=== PATIENT | male | born 1930 | race Caucasian/White ===

== ENCOUNTER 2017-04-15 09:09 | Outpatient (CLI) | payer MEDICARE ==
[2017-04-15 17:33] LABS: BASOPHILS # (AUTO) 0.1 10^3/uL (0.0-0.1); BASOPHILS % (AUTO) 1.4 %; EOSINOPHILS % (AUTO) 0.9 %; HGB - HEMOGLOBIN 8.7 g/dL (14.0-18.0); LYMPHOCYTES # (AUTO) 1.2 10^3/uL (1.5-3.5); LYMPHOCYTES % (AUTO) 28.8 %; MEAN CORPUSCULAR HEMOGLOBIN 25.4 pg (27.0-31.0); MEAN CORPUSCULAR HGB CONC 32.1 g/dL (32.0-36.0); MEAN CORPUSCULAR VOLUME 79.3 fL (80.0-94.0); MONOCYTES # (AUTO) 0.5 10^3/uL (0.0-1.0); MONOCYTES % (AUTO) 11.1 %; NEUTROPHILS # (AUTO) 2.5 10^3/uL (1.5-6.6); NEUTROPHILS % (AUTO) 57.8 %; RED BLOOD COUNT 3.41 10^6/uL (4.70-6.10); RED CELL DISTRIBUTION WIDTH 13.8 % (12.0-15.0); UNCORRECTED WHITE BLOOD COUNT 4.3 x10^3/uL; WHITE BLOOD COUNT 4.3 x10^3/uL (4.8-10.8)
[2017-04-15 20:28] LABS: ALBUMIN/GLOBULIN RATIO 1.5 (1.0-2.2); BILIRUBIN,TOTAL 0.5 mg/dL (0.2-1.0); BUN - BLOOD UREA NITROGEN 28 mg/dL (6-20); CALCIUM 9.3 mg/dL (8.5-10.3); CARBON DIOXIDE - CO2 26 mmol/L (21-32); CHLORIDE 106 mmol/L (101-111); CHOL/HDL RATIO 2.6 (<5.0); CHOLESTEROL 225 mg/dL; CREATININE 1.1 mg/dL (0.6-1.2); GFR - MDRD 64 (>89); GLUCOSE 96 mg/dL (70-100); HDL CHOLESTEROL 87 mg/dL; LDL/HDL RATIO 1.5 (<3.6); POTASSIUM 4.6 mmol/L (3.5-5.0); SODIUM 139 mmol/L (135-145); TOTAL PROTEIN 6.9 g/dL (6.7-8.2); TRIGLYCERIDES 46 mg/dL; VLDL CHOLESTEROL 9 mg/dL
== END 2017-04-15 09:10 | disposition home or self-care (01) ==
LOC: LAB.F 09:09
PROVIDERS: ATTEND Family Medicine
DX: R06.09 Other forms of dyspnea (principal)
CPT/HCPCS: 36415; 80053; 80061; 83880; 84443; 85025

== ENCOUNTER 2017-04-19 09:08 | Outpatient (CLI) | payer MEDICARE ==
[2017-04-19 11:06] LABS: IRON 11 ug/dL (45-182); TOTAL IRON BINDING CAPACITY 501 ug/dL (250-450); TRANSFERRIN 358 mg/dL (180-329)
== END 2017-04-19 09:09 | disposition home or self-care (01) ==
LOC: DI 09:08
PROVIDERS: ATTEND Family Medicine
DX: R01.1 Cardiac murmur, unspecified (principal); R06.00 Dyspnea, unspecified; I34.0 Nonrheumatic mitral (valve) insufficiency; D50.9 Iron deficiency anemia, unspecified
CPT/HCPCS: 36415; 82728; 83540; 84466; 93306

== ENCOUNTER 2017-04-20 08:00 | Outpatient (CLI) | payer MEDICARE | END 2017-04-20 23:59 | disposition home or self-care (01) | LOC: LAB.R 08:00 | PROVIDERS: ATTEND Physician Assistant Medical | DX: D50.9 Iron deficiency anemia, unspecified (principal) | CPT/HCPCS: 82270 ==

== ENCOUNTER 2017-05-09 11:40 | Outpatient (CLI) | payer MEDICARE ==
[2017-05-09 18:19] LABS: BASOPHILS # (AUTO) 0.1 10^3/uL (0.0-0.1); BASOPHILS % (AUTO) 1.3 %; EOSINOPHILS % (AUTO) 0.6 %; HCT - HEMATOCRIT 27.2 % (42.0-52.0); HGB - HEMOGLOBIN 8.4 g/dL (14.0-18.0); LYMPHOCYTES # (AUTO) 1.1 10^3/uL (1.5-3.5); LYMPHOCYTES % (AUTO) 25.8 %; MEAN CORPUSCULAR HEMOGLOBIN 25.1 pg (27.0-31.0); MEAN CORPUSCULAR VOLUME 80.9 fL (80.0-94.0); MEAN PLATELET VOLUME 7.9 fL (7.4-11.4); MONOCYTES # (AUTO) 0.5 10^3/uL (0.0-1.0); MONOCYTES % (AUTO) 12.1 %; NEUTROPHILS # (AUTO) 2.6 10^3/uL (1.5-6.6); NEUTROPHILS % (AUTO) 60.2 %; NUCLEATED RED BLOOD CELLS AUTO 0.2 /100WBC; RED BLOOD COUNT 3.37 10^6/uL (4.70-6.10); UNCORRECTED WHITE BLOOD COUNT 4.3 x10^3/uL; WHITE BLOOD COUNT 4.3 x10^3/uL (4.8-10.8)
[2017-05-09 19:35] LABS: CALCIUM 9.2 mg/dL (8.5-10.3); CREATININE 1.2 mg/dL (0.6-1.2); POTASSIUM 3.9 mmol/L (3.5-5.0)
[2017-05-09 20:20] LABS: PLATELET ESTIMATE, MANUAL NORMAL (130-450,000) (NORMAL); PLATELET MORPHOLOGY NORMAL APPEARANCE (NORMAL)
== END 2017-05-09 11:41 | disposition home or self-care (01) ==
LOC: LAB.F 11:40
PROVIDERS: ATTEND Family Medicine
DX: D50.9 Iron deficiency anemia, unspecified (principal); I10 Essential (primary) hypertension
CPT/HCPCS: 36415; 80048; 82728; 83540; 84466; 85025

== ENCOUNTER 2017-05-24 14:33 | Outpatient (CLI) | payer MEDICARE ==
[2017-05-24 17:52] LABS: BASOPHILS % (AUTO) 1.1 %; EOSINOPHILS % (AUTO) 0.3 %; HCT - HEMATOCRIT 29.4 % (42.0-52.0); HGB - HEMOGLOBIN 9.4 g/dL (14.0-18.0); LYMPHOCYTES # (AUTO) 0.9 10^3/uL (1.5-3.5); LYMPHOCYTES % (AUTO) 23.3 %; MEAN CORPUSCULAR VOLUME 81.3 fL (80.0-94.0); MEAN PLATELET VOLUME 8.1 fL (7.4-11.4); MONOCYTES # (AUTO) 0.4 10^3/uL (0.0-1.0); MONOCYTES % (AUTO) 9.4 %; NEUTROPHILS # (AUTO) 2.6 10^3/uL (1.5-6.6); NEUTROPHILS % (AUTO) 65.9 %; NUCLEATED RED BLOOD CELLS AUTO 0.1 /100WBC; RED BLOOD COUNT 3.62 10^6/uL (4.70-6.10); RED CELL DISTRIBUTION WIDTH 20.7 % (12.0-15.0)
[2017-05-24 18:11] LABS: CALCIUM 9.1 mg/dL (8.5-10.3); CREATININE 1.1 mg/dL (0.6-1.2); POTASSIUM 4.1 mmol/L (3.5-5.0)
[2017-05-24 19:38] LABS: PLATELET ESTIMATE, MANUAL NORMAL (130-450,000) (NORMAL); PLATELET MORPHOLOGY NORMAL APPEARANCE (NORMAL)
== END 2017-05-24 14:34 | disposition home or self-care (01) ==
LOC: LAB.F 14:33
PROVIDERS: ATTEND Family Medicine
DX: D50.9 Iron deficiency anemia, unspecified (principal); I10 Essential (primary) hypertension
CPT/HCPCS: 36415; 80048; 82728; 83540; 84466; 85025

== ENCOUNTER 2017-06-16 12:22 | Outpatient (CLI) | payer MEDICARE | END 2017-06-16 12:23 | disposition home or self-care (01) | LOC: RT 12:22 | PROVIDERS: ATTEND Internal Medicine Cardiovascular Disease | DX: R06.09 Other forms of dyspnea (principal) | CPT/HCPCS: 93005 ==

== ENCOUNTER 2017-07-07 11:20 | Outpatient (CLI) | payer MEDICARE ==
[2017-07-07 18:04] LABS: IRON 73 ug/dL (45-182); TOTAL IRON BINDING CAPACITY 392 ug/dL (250-450); TRANSFERRIN 280 mg/dL (180-329)
[2017-07-07 18:12] LABS: BASOPHILS # (AUTO) 0.1 10^3/uL (0.0-0.1); BASOPHILS % (AUTO) 1.4 %; EOSINOPHILS # (AUTO) 0.1 10^3/uL (0.0-0.7); EOSINOPHILS % (AUTO) 1.8 %; HCT - HEMATOCRIT 35.6 % (42.0-52.0); HGB - HEMOGLOBIN 11.5 g/dL (14.0-18.0); LYMPHOCYTES # (AUTO) 1.1 10^3/uL (1.5-3.5); LYMPHOCYTES % (AUTO) 24.6 %; MEAN CORPUSCULAR HGB CONC 32.4 g/dL (32.0-36.0); MEAN CORPUSCULAR VOLUME 86.2 fL (80.0-94.0); MEAN PLATELET VOLUME 8.4 fL (7.4-11.4); MONOCYTES # (AUTO) 0.5 10^3/uL (0.0-1.0); MONOCYTES % (AUTO) 10.9 %; NEUTROPHILS # (AUTO) 2.7 10^3/uL (1.5-6.6); NEUTROPHILS % (AUTO) 61.3 %; NUCLEATED RED BLOOD CELLS AUTO 0.1 /100WBC; RED BLOOD COUNT 4.13 10^6/uL (4.70-6.10); UNCORRECTED WHITE BLOOD COUNT 4.4 x10^3/uL; WHITE BLOOD COUNT 4.4 x10^3/uL (4.8-10.8)
== END 2017-07-07 11:21 | disposition home or self-care (01) ==
LOC: LAB.F 11:20
PROVIDERS: ATTEND Family Medicine
DX: D50.9 Iron deficiency anemia, unspecified (principal)
CPT/HCPCS: 36415; 82728; 83540; 84466; 85025

== ENCOUNTER 2017-09-09 11:28 | Outpatient (CLI) | payer MEDICARE ==
[2017-09-09 18:44] LABS: BASOPHILS % (AUTO) 0.9 %; EOSINOPHILS % (AUTO) 0.8 %; HCT - HEMATOCRIT 40.5 % (42.0-52.0); HGB - HEMOGLOBIN 13.2 g/dL (14.0-18.0); LYMPHOCYTES # (AUTO) 1.1 10^3/uL (1.5-3.5); LYMPHOCYTES % (AUTO) 26.1 %; MEAN CORPUSCULAR HEMOGLOBIN 29.9 pg (27.0-31.0); MEAN CORPUSCULAR HGB CONC 32.5 g/dL (32.0-36.0); MEAN PLATELET VOLUME 8.3 fL (7.4-11.4); MONOCYTES # (AUTO) 0.5 10^3/uL (0.0-1.0); MONOCYTES % (AUTO) 11.3 %; NEUTROPHILS # (AUTO) 2.5 10^3/uL (1.5-6.6); NEUTROPHILS % (AUTO) 60.9 %; RED BLOOD COUNT 4.41 10^6/uL (4.70-6.10); RED CELL DISTRIBUTION WIDTH 15.9 % (12.0-15.0); UNCORRECTED WHITE BLOOD COUNT 4.1 x10^3/uL; WHITE BLOOD COUNT 4.1 x10^3/uL (4.8-10.8)
[2017-09-09 18:52] LABS: IRON 73 ug/dL (45-182); TOTAL IRON BINDING CAPACITY 406 ug/dL (250-450); TRANSFERRIN 290 mg/dL (180-329)
== END 2017-09-09 11:29 | disposition home or self-care (01) ==
LOC: LAB.F 11:28
PROVIDERS: ATTEND Family Medicine
DX: D50.9 Iron deficiency anemia, unspecified (principal)
CPT/HCPCS: 36415; 82728; 83540; 84466; 85025

== ENCOUNTER 2017-10-18 11:42 | Outpatient (CLI) | payer MEDICARE ==
[2017-10-18 19:40] LABS: BASOPHILS # (AUTO) 0.1 10^3/uL (0.0-0.1); BASOPHILS % (AUTO) 1.3 %; EOSINOPHILS % (AUTO) 0.8 %; HGB - HEMOGLOBIN 12.8 g/dL (14.0-18.0); LYMPHOCYTES # (AUTO) 1.1 10^3/uL (1.5-3.5); LYMPHOCYTES % (AUTO) 25.4 %; MEAN CORPUSCULAR HEMOGLOBIN 30.3 pg (27.0-31.0); MEAN CORPUSCULAR HGB CONC 33.1 g/dL (32.0-36.0); MEAN CORPUSCULAR VOLUME 91.5 fL (80.0-94.0); MEAN PLATELET VOLUME 8.8 fL (7.4-11.4); MONOCYTES # (AUTO) 0.5 10^3/uL (0.0-1.0); MONOCYTES % (AUTO) 11.3 %; NEUTROPHILS # (AUTO) 2.7 10^3/uL (1.5-6.6); NEUTROPHILS % (AUTO) 61.2 %; PLT - PLATELET COUNT 211 10^3/uL (130-450); RED BLOOD COUNT 4.21 10^6/uL (4.70-6.10); RED CELL DISTRIBUTION WIDTH 14.7 % (12.0-15.0); WHITE BLOOD COUNT 4.4 x10^3/uL (4.8-10.8)
[2017-10-18 20:19] LABS: ALBUMIN 4.2 g/dL (3.2-5.5); ALBUMIN/GLOBULIN RATIO 1.6 (1.0-2.2); BILIRUBIN,TOTAL 0.3 mg/dL (0.2-1.0); CALCIUM 9.1 mg/dL (8.5-10.3); TOTAL PROTEIN 6.9 g/dL (6.7-8.2)
== END 2017-10-18 11:43 | disposition home or self-care (01) ==
LOC: LAB.F 11:42
PROVIDERS: ATTEND Physician Assistant Medical
DX: D50.9 Iron deficiency anemia, unspecified (principal); I10 Essential (primary) hypertension; C61 Malignant neoplasm of prostate
CPT/HCPCS: 36415; 80053; 83540; 84153; 84466; 85025

== ENCOUNTER 2017-11-22 12:17 | Day surgery (SDC) | payer MEDICARE ==
[2017-11-22] MEDS ORDERED: LACTATED RINGERS 1,000 ML IV ONE ×3 (12:35→13:36)
[2017-11-22] MEDS ORDERED: fentaNYL 100 MCG/2 ML VIAL IVP ONE (13:32)
[2017-11-22] MEDS ORDERED: MIDAZOLAM 2 MG/2 ML VIAL IVP ONE (13:32)
[2017-11-22] MEDS ORDERED: BENZOCAINE/TETRACAINE/BUTAMBEN SPRAY 56 GM TOP ONE (13:37)
[2017-11-22 15:02] VITALS: BP 136/61
== END 2017-11-22 12:18 | disposition home or self-care (01) ==
LOC: SDS 12:17
PROVIDERS: ATTEND Surgery
PROC: 0DB48ZX Excision of Esophagogastric Junction, Via Natural or Artificial Opening Endoscopic, Diagnostic (ICD-10-PCS; 2017-11-22)
PROC: 0DBK8ZX Excision of Ascending Colon, Via Natural or Artificial Opening Endoscopic, Diagnostic (ICD-10-PCS; 2017-11-22)
PROC: 0DB98ZX Excision of Duodenum, Via Natural or Artificial Opening Endoscopic, Diagnostic (ICD-10-PCS; principal; 2017-11-22 12:15)
PROC: 0DB78ZX Excision of Stomach, Pylorus, Via Natural or Artificial Opening Endoscopic, Diagnostic (ICD-10-PCS; 2017-11-22 12:15)
DX: K29.70 Gastritis, unspecified, without bleeding (principal); K44.9 Diaphragmatic hernia without obstruction or gangrene; K22.2 Esophageal obstruction; K51.40 Inflammatory polyps of colon without complications; K21.9 Gastro-esophageal reflux disease without esophagitis; D12.2 Benign neoplasm of ascending colon; K57.30 Diverticulosis of large intestine without perforation or abscess without bleeding; E78.5 Hyperlipidemia, unspecified; F41.9 Anxiety disorder, unspecified; K64.8 Other hemorrhoids; I10 Essential (primary) hypertension; Z79.82 Long term (current) use of aspirin; Z87.891 Personal history of nicotine dependence
CPT/HCPCS: 43239; 45384; A9270; J7120

== ENCOUNTER 2017-12-30 11:45 | Outpatient (CLI) | payer MEDICARE ==
[2017-12-30 17:38] LABS: BASOPHILS # (AUTO) 0.1 10^3/uL (0.0-0.1); BASOPHILS % (AUTO) 1.2 %; EOSINOPHILS % (AUTO) 0.5 %; HGB - HEMOGLOBIN 12.8 g/dL (14.0-18.0); LYMPHOCYTES # (AUTO) 1.2 10^3/uL (1.5-3.5); LYMPHOCYTES % (AUTO) 25.5 %; MEAN CORPUSCULAR HEMOGLOBIN 29.2 pg (27.0-31.0); MEAN CORPUSCULAR HGB CONC 32.4 g/dL (32.0-36.0); MEAN CORPUSCULAR VOLUME 90.2 fL (80.0-94.0); MEAN PLATELET VOLUME 8.4 fL (7.4-11.4); MONOCYTES # (AUTO) 0.5 10^3/uL (0.0-1.0); MONOCYTES % (AUTO) 10.9 %; NEUTROPHILS % (AUTO) 61.9 %; PLT - PLATELET COUNT 222 10^3/uL (130-450); RED BLOOD COUNT 4.37 10^6/uL (4.70-6.10); RED CELL DISTRIBUTION WIDTH 14.2 % (12.0-15.0); WHITE BLOOD COUNT 4.8 x10^3/uL (4.8-10.8)
== END 2017-12-30 11:46 | disposition home or self-care (01) ==
LOC: LAB.F 11:45
PROVIDERS: ATTEND Internal Medicine Gastroenterology
DX: D50.0 Iron deficiency anemia secondary to blood loss (chronic) (principal)
CPT/HCPCS: 36415; 85025

== ENCOUNTER 2018-02-02 13:57 | Outpatient (CLI) | payer MEDICARE ==
[2018-02-02 17:59] LABS: BASOPHILS # (AUTO) 0.1 10^3/uL (0.0-0.1); BASOPHILS % (AUTO) 1.2 %; EOSINOPHILS # (AUTO) 0.1 10^3/uL (0.0-0.7); EOSINOPHILS % (AUTO) 1.4 %; HGB - HEMOGLOBIN 12.4 g/dL (14.0-18.0); LYMPHOCYTES # (AUTO) 1.1 10^3/uL (1.5-3.5); LYMPHOCYTES % (AUTO) 19.3 %; MEAN CORPUSCULAR HEMOGLOBIN 28.9 pg (27.0-31.0); MEAN CORPUSCULAR HGB CONC 32.9 g/dL (32.0-36.0); MEAN CORPUSCULAR VOLUME 87.6 fL (80.0-94.0); MEAN PLATELET VOLUME 8.3 fL (7.4-11.4); MONOCYTES # (AUTO) 0.5 10^3/uL (0.0-1.0); NEUTROPHILS # (AUTO) 3.8 10^3/uL (1.5-6.6); NEUTROPHILS % (AUTO) 69.1 %; PLT - PLATELET COUNT 227 10^3/uL (130-450); RED BLOOD COUNT 4.28 10^6/uL (4.70-6.10); RED CELL DISTRIBUTION WIDTH 13.9 % (12.0-15.0); WHITE BLOOD COUNT 5.4 x10^3/uL (4.8-10.8)
== END 2018-02-02 13:58 | disposition home or self-care (01) ==
LOC: LAB.F 13:57
PROVIDERS: ATTEND Internal Medicine Gastroenterology
DX: D50.0 Iron deficiency anemia secondary to blood loss (chronic) (principal)
CPT/HCPCS: 36415; 85025

== ENCOUNTER 2018-03-21 08:00 | Outpatient (CLI) | payer MEDICARE ==
[2018-03-21 18:16] LABS: BASOPHILS # (AUTO) 0.1 10^3/uL (0.0-0.1); BASOPHILS % (AUTO) 0.9 %; EOSINOPHILS % (AUTO) 0.5 %; HGB - HEMOGLOBIN 13.3 g/dL (14.0-18.0); LYMPHOCYTES # (AUTO) 1.2 10^3/uL (1.5-3.5); LYMPHOCYTES % (AUTO) 19.4 %; MEAN CORPUSCULAR HEMOGLOBIN 29.3 pg (27.0-31.0); MEAN CORPUSCULAR HGB CONC 33.3 g/dL (32.0-36.0); MEAN CORPUSCULAR VOLUME 88.1 fL (80.0-94.0); MEAN PLATELET VOLUME 8.2 fL (7.4-11.4); MONOCYTES # (AUTO) 0.5 10^3/uL (0.0-1.0); MONOCYTES % (AUTO) 8.5 %; NEUTROPHILS # (AUTO) 4.5 10^3/uL (1.5-6.6); NEUTROPHILS % (AUTO) 70.7 %; PLT - PLATELET COUNT 253 10^3/uL (130-450); RED BLOOD COUNT 4.52 10^6/uL (4.70-6.10); RED CELL DISTRIBUTION WIDTH 14.7 % (12.0-15.0); WHITE BLOOD COUNT 6.4 x10^3/uL (4.8-10.8)
[2018-03-21 18:31] LABS: % IRON SATURATION 20 % (20-50); IRON 78 ug/dL (45-182); TOTAL IRON BINDING CAPACITY 392 ug/dL (250-450); TRANSFERRIN 280 mg/dL (180-329)
== END 2018-03-21 08:01 ==
LOC: LAB.F 08:00
PROVIDERS: ATTEND Internal Medicine Gastroenterology
DX: D50.0 Iron deficiency anemia secondary to blood loss (chronic) (principal)
CPT/HCPCS: 36415; 83540; 84466; 85025

== ENCOUNTER 2018-07-17 14:12 | Emergency (ER) | payer MEDICARE ==
[2018-07-17] MEDS ORDERED: BUFFERED LIDOCAINE 10 ML SYRINGE SUBQ ONE (14:42)
--- NOTE | 2018-07-17 14:44 | ED Physician Documentation ---
PD HPI UPPER EXT INJURY - Stated complaint Stated Complaint: GLF/LEFT ELBOW INJ - Chief complaint Chief Complaint: Wound - History obtained from History obtained from: Patient, Family ( mostly) - History of Present Illness Location: Left (87-year-old with dementia, most of the history is from the . He took a ground-level mechanical fall today in the shower and injured his left elbow and also hit his occiput. No loss of consciousness or headache. He is up-to-date on tetanus.) Review of Systems Unable to obtain: Dementia PD PAST MEDICAL HISTORY - Past Surgical History General: Colonoscopy - Present Medications Home Medications: Ambulatory Orders Medication Instructions Recorded Confirmed Ascorbic Acid [Vitamin C] 1,000 mg PO DAILY 11/22/17 11/22/17 Aspirin Chewable [St Elder 81 mg PO DAILY 11/22/17 11/22/17 Aspirin] Flaxseed Oil 1,000 mg PO DAILY 11/22/17 11/22/17 Lisinopril 20 mg PO DAILY 11/22/17 11/22/17 [place]-3/Dha/Epa/Fish Oil [Fish Oil 1 each PO DAILY 11/22/17 11/22/17 1,000 mg Softgel] Sertraline [Zoloft] 50 mg PO DAILY 11/22/17 11/22/17 Cephalexin [Keflex] 500 mg PO Q6H #28 capsule 07/17/18 - Allergies Allergies/Adverse Reactions: Allergies Allergy/AdvReac Type Severity Reaction Status Date / Time No Known Drug Allergies Allergy Verified 07/17/18 14:24 - Social History Does the pt smoke?: No Smoking Status: Never smoker PD ED PE NORMAL - Vitals Vital signs reviewed: Yes - General General: No acute distress, Other (He is alert and oriented to person and place but not date) - HEENT HEENT: PERRL, EOMI, Other (High on the occiput there is a small bruising goose egg) - Neck Neck: Supple, no meningeal sign, No bony TTP - Cardiac Cardiac: RRR, No murmur - Respiratory Respiratory: No respiratory distress, Clear bilaterally, Other (Tender to palpation around rib 10, posterior axillary line) - Extremities Extremities: Other (On the lateral posterior left elbow there is a 2 cm laceration into the olecranon Bursa without tenderness or limited range of motion) - 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 Eye Opening: Spontaneous Motor: Obeys Commands Verbal: Confused GCS Score: 14 Results - Vitals Vitals: Vital Signs - 24 hr 07/17/18 14:20 Temperature 36.3 C L Heart Rate 65 Respiratory 16 Rate Blood Pressure 154/56 H O2 Saturation 97 Oxygen O2 Source Room air - Rads (name of study) CT Head Radiology: EMP read contemporaneously (atrophy, NAD) L elbow XR Radiology: EMP read contemporaneously (neg) L ribs and Chest Radiology: EMP read contemporaneously (no obvious rib frx) Procedures - Laceration (location) L elbow Length in cm: 2 Wound type: Linear, Other (He was started on Keflex noting that it is into the bursa.) Neurovascular status: Sensory intact, Motor intact, Vascular intact Anesthesia: Lidocaine 1%, With bicarb Wound Preparation: Irrigated copiously NS Skin layer closure: Nylon, Interrupted (4), Size #-0 - enter number (4-0) Other: Patient tolerated well, No complications, Neurovascular intact, Tetanus UTD Complexity: Simple PD MEDICAL DECISION MAKING - Sepsis Event Vital Signs: Vital Signs - 24 hr 07/17/18 14:20 Temperature 36.3 C L Heart Rate 65 Respiratory 16 Rate Blood Pressure 154/56 H O2 Saturation 97 Oxygen O2 Source Room air Departure - Departure Disposition: 01 Home, Self Care Clinical Impression: Laceration Head injury Qualifiers: Encounter type: initial encounter Qualified Code(s): S09.90XA - Unspecified injury of head, initial encounter Contusion Qualifiers: Encounter type: initial encounter Contusion area: thoracic wall Contusion of thoracic wall detail: back wall of thorax Laterality: left Qualified Code(s): S20.222A - Contusion of left back wall of thorax, initial encounter Condition: Good Record reviewed to determine appropriate education?: Yes Instructions: ED Head Injury Closed, ED Laceration All Prescriptions: Cephalexin [Keflex] 500 mg PO Q6H #28 capsule Comments: Come back for any signs of infection which would include: Redness, swelling, drainage, increased pain, or fevers. Follow-up with your physician in 14 days for suture removal. Your blood pressure was elevated today on check into the emergency department. This does not mean that you have hypertension, it is a common phenomenon to come to the emergency department and have elevated blood pressure. I recommend that you see your primary care physician within the week to have it rechecked when you are feeling better.
[2018-07-17] MEDS ORDERED: cephALEXin 250 MG CAPSULE PO STA (15:08)
--- NOTE | 2018-07-17 15:32 | CT Report ---
Reason: head inj Procedure Date: 07/17/2018 Accession Number: [id number] / [id number] Procedure: CT - Head W/O CPT Code: FULL RESULT: EXAM: CT HEAD EXAM DATE: 07/17/2018 03:14 PM. CLINICAL HISTORY: Fall, head injury. COMPARISON: 12/15/2006 3:47 AM. TECHNIQUE: Multiaxial CT images were obtained from the foramen magnum to the vertex. Reformats: Sagittal and coronal. IV contrast: None. In accordance with CT protocol optimization, one or more of the following dose reduction techniques were utilized for this exam: automated exposure control, adjustment of mA and/or KV based on patient size, or use of iterative reconstructive technique. FINDINGS: Parenchyma: No intraparenchymal hemorrhage. No evidence of mass, midline shift, or CT findings of acute infarction. Ann-white differentiation is distinct. Mild bilateral chronic microangiopathic white matter changes are evident. Extraaxial Spaces: Normal for age. No subdural or epidural collections identified. Ventricles: The ventricles and cortical sulci are prominent, consistent with age-related tissue loss. Sinuses and orbits: No acute findings. No significant sinus disease. Bones: No evidence of fracture or calvarial defect. IMPRESSION: Generalized age-related cortical atrophic changes without evidence of acute intracranial abnormality. [facility]
--- NOTE | 2018-07-17 15:56 | XRAY Report ---
Reason: elbow inj Procedure Date: 07/17/2018 Accession Number: [id number] / [id number] Procedure: XR - Elbow 3 View LT CPT Code: FULL RESULT: EXAM: LEFT ELBOW RADIOGRAPHY EXAM DATE: 07/17/2018 03:27 PM. CLINICAL HISTORY: Left elbow laceration/pain after fall today. COMPARISON: None. TECHNIQUE: 3 views. FINDINGS: Bones: No fracture or bone lesion. Joints: No subluxation or joint effusion. Minimal spurring of coronoid process of the ulna. Soft Tissues: Possible mild dorsal swelling. No soft tissue calcification or subcutaneous emphysema. IMPRESSION: 1. No fracture, joint effusion, or bony malalignment. [facility]
--- NOTE | 2018-07-17 16:17 | XRAY Report ---
Reason: rib inj Procedure Date: 07/17/2018 Accession Number: [id number] / [id number] Procedure: XR - Ribs w/PA Chest LT CPT Code: FULL RESULT: EXAM: LEFT RIB RADIOGRAPHY EXAM DATE: 07/17/2018 03:27 PM. CLINICAL HISTORY: Left rib pain after injury. COMPARISON: 12/15/2006. TECHNIQUE: 3 views including frontal chest. A BB marker was placed over the symptomatic area. FINDINGS: Bones: No acute left rib fracture identified. Bones are mildly demineralized. Scoliosis. Lungs: Minimal blunting left costophrenic sulcus. No pleural effusion or pneumothorax. Similar mild irregular right apical thickening. Lungs otherwise clear. Mediastinum: Heart and mediastinal contours are unremarkable. Other: Degenerative changes of the spine. IMPRESSION: 1. No discernible left rib fracture or acute thoracic abnormality. 2. Similar right apical thickening compatible with scarring. [facility]
[2018-07-17] MEDS ORDERED: BACITRACIN OINT TOP ONE (16:24)
[2018-07-17 16:35] VITALS: BP 146/79
== END 2018-07-17 16:35 | disposition home or self-care (01) ==
LOC: ED 14:12
DX: S51.012A Laceration without foreign body of left elbow, initial encounter (principal); S00.03XA Contusion of scalp, initial encounter; S20.222A Contusion of left back wall of thorax, initial encounter
CPT/HCPCS: 12001; 70450; 71101; 73080; 99283; A9270

== ENCOUNTER 2018-08-08 14:40 | Outpatient (CLI) | payer MEDICARE ==
[2018-08-08 17:31] LABS: BASOPHILS # (AUTO) 0.1 10^3/uL (0.0-0.1); BASOPHILS % (AUTO) 1.1 %; EOSINOPHILS % (AUTO) 0.8 %; HGB - HEMOGLOBIN 13.5 g/dL (14.0-18.0); LYMPHOCYTES # (AUTO) 1.1 10^3/uL (1.5-3.5); LYMPHOCYTES % (AUTO) 24.1 %; MEAN CORPUSCULAR HEMOGLOBIN 29.8 pg (27.0-31.0); MEAN CORPUSCULAR HGB CONC 33.5 g/dL (32.0-36.0); MEAN PLATELET VOLUME 8.4 fL (7.4-11.4); MONOCYTES # (AUTO) 0.4 10^3/uL (0.0-1.0); MONOCYTES % (AUTO) 9.3 %; NEUTROPHILS % (AUTO) 64.7 %; PLT - PLATELET COUNT 215 10^3/uL (130-450); RED BLOOD COUNT 4.52 10^6/uL (4.70-6.10); RED CELL DISTRIBUTION WIDTH 14.9 % (12.0-15.0); WHITE BLOOD COUNT 4.7 x10^3/uL (4.8-10.8)
[2018-08-08 18:26] LABS: ALBUMIN 4.2 g/dL (3.2-5.5); ALBUMIN/GLOBULIN RATIO 1.6 (1.0-2.2); BILIRUBIN,TOTAL 0.4 mg/dL (0.2-1.0); CALCIUM 9.2 mg/dL (8.5-10.3); TOTAL PROTEIN 6.8 g/dL (6.7-8.2)
== END 2018-08-08 14:41 | disposition home or self-care (01) ==
LOC: LAB.F 14:40
PROVIDERS: ATTEND Family Medicine
DX: D50.9 Iron deficiency anemia, unspecified (principal); I34.0 Nonrheumatic mitral (valve) insufficiency
CPT/HCPCS: 36415; 80053; 83540; 84466; 85025

== ENCOUNTER 2019-05-15 08:00 | Outpatient (CLI) | payer MEDICARE ==
[2019-05-15 12:35] LABS: BASOPHILS # (AUTO) 0.1 10^3/uL (0.0-0.1); BASOPHILS % (AUTO) 1.2 %; EOSINOPHILS # (AUTO) 0.1 10^3/uL (0.0-0.7); HGB - HEMOGLOBIN 13.7 g/dL (14.0-18.0); LYMPHOCYTES # (AUTO) 1.2 10^3/uL (1.5-3.5); MEAN CORPUSCULAR HEMOGLOBIN 29.5 pg (27.0-31.0); MEAN CORPUSCULAR HGB CONC 31.7 g/dL (32.0-36.0); MEAN CORPUSCULAR VOLUME 92.9 fL (80.0-94.0); MEAN PLATELET VOLUME 10.7 fL (7.4-11.4); MONOCYTES # (AUTO) 0.5 10^3/uL (0.0-1.0); MONOCYTES % (AUTO) 10.9 %; NEUTROPHILS % (AUTO) 61.7 %; PLT - PLATELET COUNT 219 10^3/uL (130-450); RED BLOOD COUNT 4.65 10^6/uL (4.70-6.10); RED CELL DISTRIBUTION WIDTH 14.4 % (12.0-15.0); WHITE BLOOD COUNT 4.9 x10^3/uL (4.8-10.8)
[2019-05-15 13:15] LABS: FERRITIN 43.4 ng/mL (23.9-336.2)
[2019-05-15 14:11] LABS: ALBUMIN 4.1 g/dL (3.2-5.5); ALBUMIN/GLOBULIN RATIO 1.3 (1.0-2.2); BILIRUBIN,TOTAL 0.8 mg/dL (0.2-1.0); CALCIUM 9.6 mg/dL (8.5-10.3); TOTAL PROTEIN 7.3 g/dL (6.7-8.2)
== END 2019-05-15 23:59 | disposition home or self-care (01) ==
LOC: LAB.WCP 08:00
PROVIDERS: ATTEND Family Medicine
DX: C16.9 Malignant neoplasm of stomach, unspecified (principal); D50.9 Iron deficiency anemia, unspecified; I10 Essential (primary) hypertension
CPT/HCPCS: 36415; 80053; 82728; 83540; 84443; 84466; 85025

== ENCOUNTER 2021-01-06 07:57 | Outpatient (CLI) | payer MEDICARE ==
[2021-01-06 15:01] LABS: BASOPHILS % (AUTO) 0.8 %; EOSINOPHILS # (AUTO) 0.1 10^3/uL (0.0-0.7); EOSINOPHILS % (AUTO) 1.4 %; HCT - HEMATOCRIT 44.2 % (42.0-52.0); HGB - HEMOGLOBIN 14.3 g/dL (14.0-18.0); LYMPHOCYTES # (AUTO) 1.4 10^3/uL (1.5-3.5); LYMPHOCYTES % (AUTO) 28.2 %; MEAN CORPUSCULAR HEMOGLOBIN 30.1 pg (27.0-31.0); MEAN CORPUSCULAR HGB CONC 32.4 g/dL (32.0-36.0); MEAN CORPUSCULAR VOLUME 93.1 fL (80.0-94.0); MEAN PLATELET VOLUME 11.5 fL (7.4-11.4); MONOCYTES # (AUTO) 0.5 10^3/uL (0.0-1.0); MONOCYTES % (AUTO) 9.7 %; NEUTROPHILS # (AUTO) 2.9 10^3/uL (1.5-6.6); NEUTROPHILS % (AUTO) 59.7 %; PLT - PLATELET COUNT 182 10^3/uL (130-450); RED BLOOD COUNT 4.75 10^6/uL (4.70-6.10); RED CELL DISTRIBUTION WIDTH 14.6 % (12.0-15.0); WHITE BLOOD COUNT 4.9 x10^3/uL (4.8-10.8)
[2021-01-06 15:20] LABS: ALBUMIN 4.2 g/dL (3.2-5.5); ALBUMIN/GLOBULIN RATIO 1.4 (1.0-2.2); BILIRUBIN,TOTAL 0.9 mg/dL (0.2-1.0); CALCIUM 9.3 mg/dL (8.5-10.3); CREATININE 1.1 mg/dL (0.6-1.2); TOTAL PROTEIN 7.1 g/dL (6.7-8.2)
== END 2021-01-06 07:58 | disposition home or self-care (01) ==
LOC: LAB.S 07:57
PROVIDERS: ATTEND Internal Medicine
DX: I10 Essential (primary) hypertension (principal); C16.9 Malignant neoplasm of stomach, unspecified; I34.0 Nonrheumatic mitral (valve) insufficiency; E78.5 Hyperlipidemia, unspecified
CPT/HCPCS: 36415; 80053; 85025

== ENCOUNTER 2021-06-25 11:26 | Outpatient (CLI) | payer MEDICARE ==
[2021-06-25 15:27] LABS: BASOPHILS # (AUTO) 0.1 10^3/uL (0.0-0.1); BASOPHILS % (AUTO) 1.5 %; EOSINOPHILS # (AUTO) 0.1 10^3/uL (0.0-0.7); EOSINOPHILS % (AUTO) 1.9 %; HCT - HEMATOCRIT 43.1 % (42.0-52.0); HGB - HEMOGLOBIN 13.6 g/dL (14.0-18.0); LYMPHOCYTES # (AUTO) 1.3 10^3/uL (1.5-3.5); MEAN CORPUSCULAR HEMOGLOBIN 29.3 pg (27.0-31.0); MEAN CORPUSCULAR HGB CONC 31.6 g/dL (32.0-36.0); MEAN CORPUSCULAR VOLUME 92.9 fL (80.0-94.0); MEAN PLATELET VOLUME 10.6 fL (7.4-11.4); MONOCYTES # (AUTO) 0.5 10^3/uL (0.0-1.0); MONOCYTES % (AUTO) 10.6 %; NEUTROPHILS # (AUTO) 2.7 10^3/uL (1.5-6.6); NEUTROPHILS % (AUTO) 57.8 %; PLT - PLATELET COUNT 223 10^3/uL (130-450); RED BLOOD COUNT 4.64 10^6/uL (4.70-6.10); RED CELL DISTRIBUTION WIDTH 15.1 % (12.0-15.0); WHITE BLOOD COUNT 4.7 x10^3/uL (4.8-10.8)
[2021-06-25 15:37] LABS: ALBUMIN 3.9 g/dL (3.2-5.5); ALBUMIN/GLOBULIN RATIO 1.2 (1.0-2.2); BILIRUBIN,TOTAL 0.9 mg/dL (0.2-1.0); CALCIUM 9.2 mg/dL (8.5-10.3); CREATININE 1.1 mg/dL (0.6-1.2); POTASSIUM 4.5 mmol/L (3.5-5.0); TOTAL PROTEIN 7.2 g/dL (6.7-8.2)
== END 2021-06-25 11:27 | disposition home or self-care (01) ==
LOC: LAB.S 11:26
PROVIDERS: ATTEND Internal Medicine
DX: I10 Essential (primary) hypertension (principal)
CPT/HCPCS: 36415; 80053; 85025

== ENCOUNTER 2021-07-30 08:00 | Outpatient (CLI) | payer MEDICARE ==
[2021-07-30 19:54] LABS: GLUCOSE, URINE (UA) NEGATIVE (NEGATIVE); KETONES,URINE (UA) TRACE mg/dL (NEGATIVE); LEUKOCYTE ESTERASE, URINE MODERATE (NEGATIVE); NITRITE,URINE POSITIVE (NEGATIVE); OCCULT BLOOD,URINE LARGE (NEGATIVE); PROTEIN,URINE 100 mg/dL (NEGATIVE); UROBILINOGEN,URINE 1 (NORMAL) E.U./dL (NORMAL)
[2021-07-30 19:58] LABS: BACTERIA,URINE None Seen /HPF (None Seen); BILIRUBIN,URINE NEGATIVE (NEGATIVE); CLARITY,URINE BLOODY (CLEAR); ICTOTEST,URINE NEGATIVE; RBC,URINE TNTC /HPF (0-5); SQUAMOUS EPITHELIAL CELL,UR RARE Squamous (<= Few); WBC,URINE 0-3 /HPF (0-3)
== END 2021-07-30 23:59 | disposition home or self-care (01) ==
LOC: LAB.S 08:00
PROVIDERS: ATTEND Emergency Medicine
DX: N39.0 Urinary tract infection, site not specified (principal); R31.9 Hematuria, unspecified
CPT/HCPCS: 81001; 87077; 87086; 87181